=== PATIENT | male | born 1980 | race African-American/Black ===

== ENCOUNTER 2017-08-04 09:23 | Emergency (ER) | payer OTHER ==
[~2017-08-04] VITALS: Ht 172.7 cm; Wt 85.0 kg
[2017-08-04 09:27] VITALS: Ht 172.7 cm; Wt 85.0 kg
[2017-08-04] MEDS ORDERED: ONDANSETRON (ODT) 4 MG TAB ODT STA (09:28)
[2017-08-04] MEDS ORDERED: HYDROCODONE/APAP (10/325) TAB PO ONE (09:30)
[2017-08-04] MEDS ORDERED: ALBUTEROL 0.5% (NEB) 2.5 MG/0.5 ML AMP INH STA (09:35)
--- NOTE | 2017-08-04 09:50 | RADRPT ---
PROCEDURE: CT Brain without contrast. CLINICAL INDICATION: Pain, headache TECHNIQUE: Routine CT scan of the brain was performed on a high resolution multi detector scanner without intravenous contrast. One or more of the following dose reduction techniques were used: Auto mated exposure control; Adjustment of the mA and/or kV according to patient size; Use of iterative r econstruction technique. CTDI = 43 mGy. DLP = 864 mGy-cm. DICOM images are available. COMPARISON: No prior relevant examinations are available for comparison. FINDINGS: Hemorrhage: No evidence of intracranial hemorrhage. Acute ischemic changes: No evidence of acute ischemic changes. Mass effect: None. Parenchymal volume: Within normal limits for age. Ventricular system: Concordant with parenchymal volume. Chronic changes: Parenchymal attenuation is within normal limits. Extracranial soft tissues: Unremarkable. Calvarium: No fractures. Paranasal sinuses: Moderate opacification of the bilateral maxillary sinuses and ethmoid air cells. Mastoid air cells: Visualized mastoid air cells are clear. IMPRESSION: No acute intracranial abnormalities. Normal appearance of the brain parenchyma. Moderate opacification of the paranasal sinuses may be due to mild sinusitis. RPTAT: AADD .Timoteo Baxter MD, Date Time Electronically viewed and signed by .Timoteo Baxter MD, on 08/04/2017 09:50 .B/
--- NOTE | 2017-08-04 10:04 | RADRPT ---
PROCEDURE: CT cervical spine without contrast CLINICAL INDICATION: Trauma. Neck pain. TECHNIQUE: CT scan of the cervical spine was performed on a [facility] No IV contrast was administered. Coronal and sagittal reformatted images were obtained from th e axial source images. Images were reviewed on a high-resolution PACS workstation. One or more the f ollowing does reduction techniques were utilized: Automated exposure control, adjustment of the mA/ or kV according to patient's size, or use of iterative reconstruction technique. Exam CTDI = 20.88 m Gy and the DLP = 396.45 mGy-cm. DICOM images are available. COMPARISON: None available. FINDINGS: There is straightening of the alignment of the cervical spine with loss of the normal cervical lordo sis. Alignment remains intact. No acute fracture or dislocation is seen. The vertebral body heigh ts are preserved. There is mild to moderate posterior neck subcutaneous soft tissue swelling and str anding is noted. There are multilevel mild degenerative changes of the cervical spine, manifested by osteophytosis an d disc height narrowing, most prominent at C4-C5, C5-C6 and C6-C7. Uncovertebral osteophytes and fac et arthropathy result in multilevel foraminal stenosis: at C2-C3 mild to moderate on the left, at C3 -C4 minimal on the left, at C4-C5 minimal on the right. Multilevel posterior disc bulges are noted m ore pronounced at C3-C4 and C4-C5 without significant spinal canal stenosis with IMPRESSION: 1. Straightening of normal cervical lordosis. 2. No acute fracture or traumatic subluxation. 3. Multilevel mild degenerative changes of the cervical spine, most prominent at C4-C5, C5-C6 and C 6-C7. 4. Multilevel foraminal stenosis as outlined in details in findings. 5. Mild to moderate posterior neck subcutaneous soft tissue swelling and stranding. RPTAT: UU .Melissa Landrum MD, Date Time Electronically viewed and signed by .Melissa Landrum MD, MD on 08/04/2017 10:03 .N/
[2017-08-04] MEDS ORDERED: INSU200I SQ (10:26)
[2017-08-04] MEDS ORDERED: ASPI-664 PO (10:27)
[2017-08-04] MEDS ORDERED: LANT3I SC (10:27)
[2017-08-04] MEDS ORDERED: QUIN5TAB PO (10:30)
[2017-08-04] MEDS ORDERED: LISI2.5T59 PO (10:31)
[2017-08-04] MEDS ORDERED: IBUP800T25 PO (10:46)
[2017-08-04] MEDS ORDERED: HYDR-902 PO (10:46)
[2017-08-04] MEDS ORDERED: DIAZ-90 PO (10:46)
[2017-08-04 11:00] VITALS: BP 128/72; PULSE 86; RESP 18; TEMP 98.1
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
== END 2017-08-04 11:14 | disposition home or self-care (01) ==
LOC: E/R 09:23
DX: S13.4XXA Sprain of ligaments of cervical spine, initial encounter (principal); E11.9 Type 2 diabetes mellitus without complications; R93.0 Abnormal findings on diagnostic imaging of skull and head, not elsewhere classified; V49.40XA Driver injured in collision with unspecified motor vehicles in traffic accident, initial encounter; Z79.82 Long term (current) use of aspirin; Z79.4 Long term (current) use of insulin
CPT/HCPCS: 70450; 72125; Z7502; Z7610